=== PATIENT | male | born 1955 | race Caucasian/White ===

== ENCOUNTER 2018-07-13 08:15 | Outpatient (RCR) ==
--- NOTE | 2018-07-01 16:27 | RS.OPPTEV2 ---
Date of Note: 07/01/18 Visit #: 1 Number of visits approved by Insurance: NA Date of Evaluation: 07/01/18 Payer Source: MEDICARE Surgery Performed?: Yes (Right knee Arthroscopic surgery) Date of Procedure: 06/26/18 Treatment Diagnosis: Right knee pain, Right knee stiffness History of Condition/Mechanism of Injury:: Patient reports progressive right knee pain. He has received injections in the knee, which were of no benefit. Continued knee pain and limited functional ability led him to have surgery. 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 Prior to surgery he was independent with all ADL' s, walking, driving and farm activities with knee pain. Functional Limitations: Sleep, Sitting, Standing, Squatting, Ambulation, Community Access/Integration Current Subjective/complaints:: Mr. Hanley reports he used a crutch for the first few days after surgery. Now he just uses a crutch if going out to feed the chickens or anytime he is on uneven ground. States his procedure was to clean out the knee, including cleaning up a meniscus. States he was told that the surgeon did more work on the medial side of the knee joint. States he has iced the knee some. States most of his discomfort is with bending the knee. States he needs to be able to bend his knee up to get into a tractor or a side- by-side. 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 Pain Assessment - Pain Description Pain Location: right knee joint Pain Description: Dull, Aching Current Pain Intensity: 4/10 Worst Pain Intensity: 10/10 Functional Outcome Measure LE Functional Scale: 28 (28/80=65% impairment) - G Codes & Severity Modifier G Codes & Modifier: NA Source of G Code score: NA Observation - Observation Inspection: Right knee presents with two scope entry sites, one on each side of the patella tendon. Steri strips in place over incisions. No bruising noted. Right knee presents min-moderate swelling throughout the knee joint. Gait - Gait Pattern Gait Comments: Mr. Hanley ambulates without an assistive device, with decreased stance on the right LE. He demonstrates good heel strike. Demonstrates decreased right knee flexion during swing phase. - Left Knee ROM Left Knee Extension: -2 from full extension Left Knee Flexion: 118 (degrees AROM) - Right Knee ROM Right Knee Extension: -12 degrees from full extension Right Knee Flexion: 90 (degrees AROM) Knee ROM Limitations: Soft Tissue Tightness, Pain Comments: After ROM/exercises to the right knee, AROM -10 extension to 95 degrees flexion. PROM -8 to 95 degrees. - Left Knee Strength Left Knee Extension: 5 Normal Left Knee Flexion: 5 Normal Comments: Left hip strength 5/5. - Right Knee Strength Right Knee Extension: 4 Good Right Knee Flexion: 4+ Good + Comments: Right hip strength 4+ to 5/5. Palpation Comments:: Reports slight tenderness around the anterior and medial aspect of the right knee joint. Sensation - Sensation Right Lower Extremity: Intact/Normal Left Lower Extremity: Intact/Normal Interventions - Exercise/Activities/Manual Therapy Exercises/Activities: Patient received assistance with ROM to the right knee flexion/extension. Performed SAQ's, SLR's, ankle pumps, Quad sets. Demonstrated passive knee extension with a towel roll under his ankle. Emphasized he needs to do this with his toes pointed up. Also encourged him to ice the knee a few times a day. We discussed the mechanics of the knee and to avoid turning on a planted foot. Total minutes of Exercise: 19 mins Manual Therapy: NA HOME EXERCISE PROGRAM: heel slides, standing HS curls, SAQ's, Quad sets, ankle pumps - Charges Timed Code Treatment Minutes: 19 mins Total Treatment Time: 52 mins Procedures billed for this date of service:: MAMADOU Daugherty, EX EVALUATION COMPLEXITY LEVEL EVALUATION COMPLEXITY LEVEL: HISTORY: Medium (Previous right knee scope, Diabetes, HTN), EXAM OF BODY SYSTEMS: Medium (ROM, MS, gait, sensation), CLINICAL PRESENTATION: Low, CLINICAL DECISION MAKING: Low Assessment Assessment: Mr. Hanley presents to therapy 5 days s/p right knee arthroscopy. He demonstrates limited right knee passive and active ROM due to swelling from recent procedure. Reports limited functional ability with ADL's, gait, and usual farming activities. Gait is impaired at this time due to limited knee ROM. He demonstrates good potential to regain functional AROM of the right knee and return to his prior level of function. Patient Education: Education of diagnosis, Body/Joint mechanics, Home Exercise Program, Activity Modification, Education of Plan of Care Rehab Potential: Good Short Term Goals Goal #1: Pt independent and compliant with HEP. Goal to be met by: 07/08/18 Goal #2: Right knee extension to -5 degrees. Goal to be met by: 07/08/18 Goal #3: Right knee active flexion to 105 degrees. Goal to be met by: 07/08/18 Skilled Nursing Goals Goal #1: Pt knows HEP and to continue ex's to maintain functional level at D/C. Goal to be met by: 07/25/18 Goal #2: Right knee AROM 0 to 120 degrees to perform all functional activities. Goal to be met by: 07/25/18 Goal #3: Pt will amb. w/o assistive device community distances with min. gait deviat Goal to be met by: 07/25/18 Goal #4: Score on LE functional scale improved to 50/80. Goal to be met by: 07/25/18 Plan - Treatment to be Provided Procedures: Therapeutic Exercises, Therapeutic Activity, Patient Education Modalities: Cryotherapy - Treatment Plan Frequency: 1-3 X week Duration: 2 weeks Dates of Cloth Bin Packer Goals: 07/25/18 Expiration date of current Insurance Approval:: NA - Treatment Code (1) Knee pain Code(s): M25.569 - PAIN IN UNSPECIFIED KNEE Qualifiers: Chronicity: acute Laterality: right Qualified Code(s): M25.561 - Pain in right knee (2) Knee stiffness Qualifiers: Laterality: right Qualified Code(s): M25.661 - Stiffness of right knee, not elsewhere classified (3) S/P right knee arthroscopy Code(s): Z98.890 - OTHER SPECIFIED POSTPROCEDURAL STATES Comments: Z98.890
--- NOTE | 2018-07-03 15:58 | RS.OPPTDN ---
Subjective Date of Note: 07/03/18 Visit #: 2 Number of visits approved by Insurance: 3 Date of Evaluation: 07/01/18 Payer Source: MEDICARE Treatment Diagnosis: Right knee pain, Right knee stiffness Current Subjective/complaints:: Patient says he has had tightness and soreness to the R calve and posterior knee. 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 Denies any trouble sleeping related to knee pain. States he only uses his cane when he is on uneven terrain (farm). - Heat/Cryotherapy Treatment: Cryotherapy (20 mins to the R knee after therex) Interventions - Exercise/Activities/Manual Therapy Exercises/Activities: Patient received PROM to the R knee including Flex/ext, hamstring stretching and heel cord stretching. Patellar glides. He performs: QS (with ankle over bolster for added stretch), Hip abd in hooklying with green tband, SAQ 1#, DF with green tband, SLR, Hip adduction with ball squeezes, LAQ all 2x10 reps. Ended with further stretching for HS and knee flexion AAROM. Reviewed HEP and discussed proper body mechanics. Encouraged ice and elevation to the knee over the weekend. Total minutes of Exercise: 34 Manual Therapy: NA HOME EXERCISE PROGRAM: heel slides, standing HS curls, SAQ's, Quad sets, ankle pumps - Charges Timed Code Treatment Minutes: 34 Total Treatment Time: 49 Procedures billed for this date of service:: cp, ex2 Assessment: Patient amb with decreased stance on the R LE and decreased stride length. He admits only mild intermittent pain, but not taking pain medication currently. He has driven himself to therapy session today without difficulty. His sleep is not disturbed due to the R knee pain/scope. He carmen therex with slight fascial grimacing during knee extension. He uses crutch when he is walking around on uneven terrain such as his farm. He should benefit from further sessions to decrease pain and swelling and work on ROM and strength return for the R knee. Patient Education: Education of diagnosis, Body/Joint mechanics, Home Exercise Program, Home Safety, Education of Plan of Care Short Term Goals Goal #1: Pt independent and compliant with HEP. Goal to be met by: 07/08/18 Progress towards Goal:: Progressing Comments:: initiated Goal #2: Right knee extension to -5 degrees. Goal to be met by: 07/08/18 Goal #3: Right knee active flexion to 105 degrees. Goal to be met by: 07/08/18 Molecular Biology Scientist Goals Goal #1: Pt knows HEP and to continue ex's to maintain functional level at D/C. Goal to be met by: 07/25/18 Goal #2: Right knee AROM 0 to 120 degrees to perform all functional activities. Goal to be met by: 07/25/18 Goal #3: Pt will amb. w/o assistive device community distances with min. gait deviat Goal to be met by: 07/25/18 Goal #4: Score on LE functional scale improved to 50/80. Goal to be met by: 07/25/18 Plan Dates of Molecular Biology Scientist Goals: 07/25/18 Expiration date of current Insurance Approval:: 07/25/18 PLAN: Continue x 1 more session then return to MD on 07/08/18. Patient would benefit from receiving continuation order at that point.
--- NOTE | 2018-07-06 11:55 | RS.OPPTDN ---
Subjective Date of Note: 07/06/18 Visit #: 3 Number of visits approved by Insurance: 3 Date of Evaluation: 07/01/18 Payer Source: MEDICARE Treatment Diagnosis: Right knee pain, Right knee stiffness Current Subjective/complaints:: Patient says he has not taken any pain medication in 2 days. Reports the back of his R knee is tight and sore. States he is not icing his knee, but says he doesn't really have any swelling. 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 - Heat/Cryotherapy Treatment: Cryotherapy (15 mins after therex in supine) Interventions - Exercise/Activities/Manual Therapy Exercises/Activities: Patient continued with PROM and stretching to the R knee including Flex/ext, hamstring stretching and heel cord stretching. Patellar glides. Stretching for extension with ankle over bolster. He performs: QS ( with and without ankle over bolster for added stretch), Hip abd in hooklying with green tband, SAQ 1 1/2 #, DF with green tband, SLR, Hip adduction with ball squeezes, Further stretching for flex/ext. LAQ all 2x10 reps. Began stationary bike for ROM x 4 mins forward and reverse full revolutions. Measurements taken. Ended with cryotherapy. Reviewed HEP and discussed proper body mechanics. Encouraged ice and elevation to the knee over the weekend. Total minutes of Exercise: 34 Manual Therapy: NA HOME EXERCISE PROGRAM: heel slides, standing HS curls, SAQ's, Quad sets, ankle pumps - Charges Timed Code Treatment Minutes: 34 Total Treatment Time: 50 Procedures billed for this date of service:: cp, ex2 Assessment: Patient demo increased ROM -7 to 96 degrees actively, Passive flexion to 100 degrees. Pain not requiring patient to take medication and is able to amb independently around house and in community without AD. 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 Recommended him to use ice to hold stretch. He demo only slight to mild swelling. Tightness remains with performing full forward revolutions to the medial posterior knee. He has returned to most all yardwork/home duties. He is to return to July 08. Patient Education: Education of diagnosis, Body/Joint mechanics, Home Exercise Program, Home Safety, Education of Plan of Care Patient demonstrates compliance with HEP?: Yes Short Term Goals Goal #1: Pt independent and compliant with HEP. Goal to be met by: 07/08/18 Progress towards Goal:: Progressing Goal #2: Right knee extension to -5 degrees. Goal to be met by: 07/08/18 Progress towards Goal:: Progressing Comments:: -7 Goal #3: Right knee active flexion to 105 degrees. Goal to be met by: 07/08/18 Progress towards Goal:: Progressing Comments:: 96 to 100 degrees today Retirement Goals Goal #1: Pt knows HEP and to continue ex's to maintain functional level at D/C. Goal to be met by: 07/25/18 Progress towards goal: Progressing Goal #2: Right knee AROM 0 to 120 degrees to perform all functional activities. Goal to be met by: 07/25/18 Goal #3: Pt will amb. w/o assistive device community distances with min. gait deviat Goal to be met by: 07/25/18 Goal #4: Score on LE functional scale improved to 50/80. Goal to be met by: 07/25/18 Plan Dates of Retirement Goals: 07/25/18 Expiration date of current Insurance Approval:: 07/25/18 PLAN: Patient has completed current order. Recommend further orders once he follows up with ortho Friday.
--- NOTE | 2018-07-10 08:54 | RS.OPPTDN ---
Subjective Date of Note: 07/10/18 Visit #: 4 Number of visits approved by Insurance: na Date of Evaluation: 07/01/18 Payer Source: MEDICARE Treatment Diagnosis: Right knee pain, Right knee stiffness Current Subjective/complaints:: Reports yetserday the knee hurt alot ,but better today. Pain Assessment - Pain Description Pain Location: R knee Pain Description: Tightness, Dull, Aching Current Pain Intensity: 2-3/10 Interventions - Exercise/Activities/Manual Therapy Exercises/Activities: 40 mins. total,beginning on exercise bike for 10 mins. , followed by 3/15 each of resisted ankle pumps with green theraband,quad sets to -5 extension ,SLR's ,heelslides to 105 degrees flexion.Grade II AP glides prior to heelslides. Total minutes of Exercise: 40 Manual Therapy: NA Total minutes of Manual Therapy: 0 HOME EXERCISE PROGRAM: heel slides, standing HS curls, SAQ's, Quad sets, ankle pumps - Charges Timed Code Treatment Minutes: 30 Total Treatment Time: 40 Procedures billed for this date of service:: ex 2 Assessment: Tolerates riding the bike better today,has increased knee flexion with les pain present.He reports no pain at rest after exercises today. Patient Education: Education of diagnosis, Body/Joint mechanics, Home Exercise Program, Home Safety, Activity Modification, Education of Plan of Care Patient demonstrates compliance with HEP?: Yes Short Term Goals Goal #1: Pt independent and compliant with HEP. Goal to be met by: 07/08/18 Progress towards Goal:: Progressing Goal #2: Right knee extension to -5 degrees. Goal to be met by: 07/08/18 Progress towards Goal:: Partially Met (-5 today ,but not yet consistent) Goal #3: Right knee active flexion to 105 degrees. Goal to be met by: 07/08/18 Progress towards Goal:: Met Real Estate Manager Goals Goal #1: Pt knows HEP and to continue ex's to maintain functional level at D/C. Goal to be met by: 07/25/18 Progress towards goal: Progressing Goal #2: Right knee AROM 0 to 120 degrees to perform all functional activities. Goal to be met by: 07/25/18 Goal #3: Pt will amb. w/o assistive device community distances with min. gait deviat Goal to be met by: 07/25/18 Progress towards goal: Progressing Goal #4: Score on LE functional scale improved to 50/80. Goal to be met by: 07/25/18 Plan Dates of Real Estate Manager Goals: 07/25/18 Expiration date of current Insurance Approval:: na PLAN: Cont. skilled PT to increase R knee motion with less or no pain present with ADL's.
--- NOTE | 2018-07-13 09:51 | RS.OPPTDN ---
Subjective Date of Note: 07/13/18 Visit #: 5 Number of visits approved by Insurance: 2-3 x 2 with new continuation order for total of 9 visits Date of Evaluation: 07/01/18 Payer Source: MEDICARE Treatment Diagnosis: Right knee pain, Right knee stiffness Current Subjective/complaints:: Patient says he had elevated pain yesterday, but is much better today. 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 He says he no longer takes pain medication or uses a crutch while on uneven terrain. - Heat/Cryotherapy Treatment: Cryotherapy (15 mins to the R knee in supine after therex) Interventions - Exercise/Activities/Manual Therapy Exercises/Activities: 43mins. Patient begins with stationary bike x 7 mins to increase R knee ROM forward and reverse full revolutions with cues to statically stretch while in flexion. Patient supine for patellar glides, passive hamstring and heel cord stretching, stretching for flexion, contract/ relax methods to improve mobility. SAQ 3#, QS on table and with ankle over bolster for added stretch, DF and hooklying hip abd with green tband, ball squeezes in hooklying for hip add, SLR all 3x10 reps. Sitting EOB: contract/ relax multiple reps to further improve ROM as well as continued stretching. Total minutes of Exercise: 43 Manual Therapy: NA HOME EXERCISE PROGRAM: heel slides, standing HS curls, SAQ's, Quad sets, ankle pumps - Charges Timed Code Treatment Minutes: 36 Total Treatment Time: 58 Procedures billed for this date of service:: cp, ex2 Assessment: Patient improving with tolerance to increasing stretching for flexion, demo increased range observably between beginning treatment today to end of session. 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 Patient Education: Education of diagnosis, Home Exercise Program, Home Safety, Education of Plan of Care Patient demonstrates compliance with HEP?: Yes Short Term Goals Goal #1: Pt independent and compliant with HEP. Goal to be met by: 07/08/18 Progress towards Goal:: Progressing Goal #2: Right knee extension to -5 degrees. Goal to be met by: 07/08/18 Progress towards Goal:: Partially Met (-5 today ,but not yet consistent) Goal #3: Right knee active flexion to 105 degrees. Goal to be met by: 07/08/18 Progress towards Goal:: Met [facility] Goals Goal #1: Pt knows HEP and to continue ex's to maintain functional level at D/C. Goal to be met by: 07/25/18 Progress towards goal: Progressing Goal #2: Right knee AROM 0 to 120 degrees to perform all functional activities. Goal to be met by: 07/25/18 Goal #3: Pt will amb. w/o assistive device community distances with min. gait deviat Goal to be met by: 07/25/18 Progress towards goal: Progressing Goal #4: Score on LE functional scale improved to 50/80. Goal to be met by: 07/25/18 Plan Dates of Oil Inspector Goals: 07/25/18 Expiration date of current Insurance Approval:: 07/25/18 PLAN: Patient had presented continuation order last session for 2-3 x 2 more weeks for total of 9 sessions. He should further improve with progressive stretching and strengthening to the R knee.
== END 2018-07-14 23:59 ==
PROVIDERS: ATTEND Orthopaedic Surgery
DX: M25.561 Pain in right knee (principal); M25.661 Stiffness of right knee, not elsewhere classified; Z98.890 Other specified postprocedural states

== ENCOUNTER 2018-07-22 08:15 | Outpatient (RCR) ==
--- NOTE | 2018-07-15 09:40 | RS.OPPTDN ---
Subjective Date of Note: 07/15/18 Visit #: 6 Number of visits approved by Insurance: Reassess at 10 Date of Evaluation: 07/01/18 Payer Source: MEDICARE Treatment Diagnosis: Right knee pain, Right knee stiffness Current Subjective/complaints:: Patient c/o stiffness today. Says he doesn't really have any pain. 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 Interventions - Exercise/Activities/Manual Therapy Exercises/Activities: 43mins. Patient supine for patellar glides, passive hamstring and heel cord stretching, stretching for flexion, contract/relax methods to improve mobility. SAQ 3#, QS on table and with ankle over bolster for added stretch, DF and hooklying hip abd with green tband, ball squeezes in hooklying for hip add, SLR all 3x10 reps. Hip abd with knee extended, more QS 3x10. Sitting EOB: contract/relax multiple reps to further improve ROM as well as continued stretching.Patient ends with stationary bike x 7 mins to increase R knee ROM forward and reverse full revolutions with cues to statically stretch while in flexion. Manual Therapy: NA HOME EXERCISE PROGRAM: heel slides, standing HS curls, SAQ's, Quad sets, ankle pumps - Charges Timed Code Treatment Minutes: 43 Total Treatment Time: 50 Procedures billed for this date of service:: ex3 Assessment: Patient presents with increased stiffness today admitting no pain, but demo slight unsteadiness in gait at one point nearly scissoring. He appears to carmen increased knee extension with aggressive stretching and contract/ relax methods. Will measure next session. Patient Education: Home Exercise Program, Home Safety Patient demonstrates compliance with HEP?: Yes Short Term Goals Goal #1: Pt independent and compliant with HEP. Goal to be met by: 07/08/18 Progress towards Goal:: Progressing Goal #2: Right knee extension to -5 degrees. Goal to be met by: 07/08/18 Progress towards Goal:: Partially Met (-5 today ,but not yet consistent) Goal #3: Right knee active flexion to 105 degrees. Goal to be met by: 07/08/18 Progress towards Goal:: Met Metalworker Goals Goal #1: Pt knows HEP and to continue ex's to maintain functional level at D/C. Goal to be met by: 07/25/18 Progress towards goal: Progressing Goal #2: Right knee AROM 0 to 120 degrees to perform all functional activities. Goal to be met by: 07/25/18 Goal #3: Pt will amb. w/o assistive device community distances with min. gait deviat Goal to be met by: 07/25/18 Progress towards goal: Progressing Goal #4: Score on LE functional scale improved to 50/80. Goal to be met by: 07/25/18 Plan Dates of Long-Term Goals: 07/25/18 Expiration date of current Insurance Approval:: 07/25/18 PLAN: Patient to continue TIW for R knee ROM and strength.
--- NOTE | 2018-07-17 16:39 | RS.OPPTDN ---
Subjective Date of Note: 07/17/18 Visit #: 7 Number of visits approved by Insurance: Reassess at 10th Date of Evaluation: 07/01/18 Payer Source: MEDICARE Treatment Diagnosis: Right knee pain, Right knee stiffness Current Subjective/complaints:: Patient says he's still a little stiff from the damp weather, but reports he is able to do most tasks at home. Says he did not have any increase in pain or difficulty with replacing 100+ pound pump for his tractor 2 days ago. Interventions - Exercise/Activities/Manual Therapy Exercises/Activities: 43mins. Begins with stationary bike forward and reverse x 7 mins intermittently statically stretching for flexion full revolutions. Patient supine for patellar glides, passive hamstring and heel cord stretching, stretching for flexion, contract/relax methods to improve mobility. SAQ 3#, QS on table and with ankle over bolster for added stretch, DF and hooklying hip abd with green tband, ball squeezes in hooklying for hip add, SLR all 3x10 reps. Hip abd with knee extended, more QS 3x10. Stretching for knee extension with ankle over bolster then pt actively performing more QS. Measurements taken. Sitting EOB: contract/relax multiple reps to further improve ROM as well as continued stretching. Standing 3# for ham curls, hip abd, and hip flexion all x 12 reps. Total minutes of Exercise: 45 Manual Therapy: NA HOME EXERCISE PROGRAM: heel slides, standing HS curls, SAQ's, Quad sets, ankle pumps - Charges Timed Code Treatment Minutes: 45 Total Treatment Time: 45 Procedures billed for this date of service:: ex3 Assessment: Patient demo increase in mobility to the R knee this week measuring -3 with QS, (-7 at rest), 107 degrees flexion with heel slide actively. Patient maintains little to no pain level. He amb with slightly better gait today with improved clearing bilaterally. 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 Patient Education: Home Exercise Program, Home Safety Patient demonstrates compliance with HEP?: Yes Short Term Goals Goal #1: Pt independent and compliant with HEP. Goal to be met by: 07/08/18 Progress towards Goal:: Progressing Goal #2: Right knee extension to -5 degrees. Goal to be met by: 07/08/18 Progress towards Goal:: Partially Met (-5 today ,but not yet consistent) Goal #3: Right knee active flexion to 105 degrees. Goal to be met by: 07/08/18 Progress towards Goal:: Met Audit Intern Goals Goal #1: Pt knows HEP and to continue ex's to maintain functional level at D/C. Goal to be met by: 07/25/18 Progress towards goal: Progressing Goal #2: Right knee AROM 0 to 120 degrees to perform all functional activities. Goal to be met by: 07/25/18 Goal #3: Pt will amb. w/o assistive device community distances with min. gait deviat Goal to be met by: 07/25/18 Progress towards goal: Progressing Goal #4: Score on LE functional scale improved to 50/80. Goal to be met by: 07/25/18 Plan Dates of Jail Goals: 07/25/18 Expiration date of current Insurance Approval:: 07/25/18 PLAN: Patient to continue next week for progressive ROM to the R knee
--- NOTE | 2018-07-20 12:49 | RS.OPPTDN ---
Subjective Date of Note: 07/20/18 Visit #: 8 Number of visits approved by Insurance: 9 Date of Evaluation: 07/01/18 Payer Source: MEDICARE Treatment Diagnosis: Right knee pain, Right knee stiffness Current Subjective/complaints:: Patient says he had an increase in pain over the weekend related to the damp weather. He reports soreness and tight at the R medial and posterior knee. Reports he was walking around [facility] and had to go home and put ice on his knee, but denies taking pain medication. Interventions - Exercise/Activities/Manual Therapy Exercises/Activities: 43mins. Begins with stationary bike forward and reverse x 8 mins intermittently statically stretching for flexion full revolutions. Patient supine for patellar glides, passive hamstring and heel cord stretching, stretching for flexion, contract/relax methods to improve mobility. SAQ increased to 4#, QS on table and with ankle over bolster for added stretch, DF and hooklying hip abd with green tband, ball squeezes in hooklying for hip add, SLR all 3x10 reps. Hip abd with knee extended, more QS 3x10. Stretching for knee extension with ankle over bolster then pt actively performing more QS. Sitting EOB: contract/relax multiple reps to further improve ROM as well as continued stretching. Stretching again for extension, LAQ 4#, Standing 3# for ham curls, hip abd, and hip flexion all x 12 reps. Manual Therapy: NA HOME EXERCISE PROGRAM: heel slides, standing HS curls, SAQ's, Quad sets, ankle pumps - Charges Timed Code Treatment Minutes: 43 Total Treatment Time: 51 Procedures billed for this date of service:: ex3 Assessment: Patient progressing well with all therex demo improved knee flexion. He has had intermittent increase in pain related to consistent rain. He finds relief with ice at home and is not taking pain medication. 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 Remains tight at the R hamstrings, but does improve knee extension with contract/relax methods. Patient Education: Home Exercise Program, Education of Plan of Care Patient demonstrates compliance with HEP?: Yes Short Term Goals Goal #1: Pt independent and compliant with HEP. Goal to be met by: 07/08/18 Progress towards Goal:: Met Goal #2: Right knee extension to -5 degrees. Goal to be met by: 07/08/18 Progress towards Goal:: Partially Met (-5 today ,but not yet consistent) Goal #3: Right knee active flexion to 105 degrees. Goal to be met by: 07/08/18 Progress towards Goal:: Met Safety Lamp Keeper Goals Goal #1: Pt knows HEP and to continue ex's to maintain functional level at D/C. Goal to be met by: 07/25/18 Progress towards goal: Progressing Goal #2: Right knee AROM 0 to 120 degrees to perform all functional activities. Goal to be met by: 07/25/18 Progress towards goal: Progressing Goal #3: Pt will amb. w/o assistive device community distances with min. gait deviat Goal to be met by: 07/25/18 Progress towards goal: Progressing Goal #4: Score on LE functional scale improved to 50/80. Goal to be met by: 07/25/18 Comments: assess next session Plan Dates of Care Home Goals: 07/25/18 Expiration date of current Insurance Approval:: 07/25/18 PLAN: Patient to continue 1 more session per order. Reassess LE Functional Index.
--- NOTE | 2018-07-22 10:53 | RS.OPPTDN ---
Subjective Date of Note: 07/22/18 Visit #: 9 Number of visits approved by Insurance: 9 Date of Evaluation: 07/01/18 Payer Source: MEDICARE Treatment Diagnosis: Right knee pain, Right knee stiffness Current Subjective/complaints:: Patient says he has been going up/down his stairs at home with no problems. He admits leading with the involved LE and 1 handrail. He says he is able to do "everything" at home. Interventions - Exercise/Activities/Manual Therapy Exercises/Activities: 43mins. Begins with stationary bike forward and reverse x 8 mins intermittently statically stretching for flexion full revolutions. Patient supine for patellar glides, passive hamstring and heel cord stretching, stretching for flexion, contract/relax methods to improve mobility. SAQ 4#, QS on table and with ankle over bolster for added stretch, DF and hooklying hip abd with blue tband, ball squeezes in hooklying for hip add, SLR 1 1/2# all 3x10 reps. Hip abd with knee extended, more QS 3x10. Stretching for knee extension with ankle over bolster then pt actively performing more QS. Sitting EOB: contract/relax multiple reps to further improve ROM as well as continued stretching. Stretching again for extension, LAQ 4#, Standing 4# for ham curls, hip abd, and hip flexion all x 12 reps. Deep step ups on Balance Elma with instruction of proper step sequence using 1 rail x 8. No c/o's and pt able to perform correctly. Patient completes LE Functional Index. Manual Therapy: NA HOME EXERCISE PROGRAM: heel slides, standing HS curls, SAQ's, Quad sets, ankle pumps - Objective Findings Observations,measurements,etc.: 54/80 or 33% impairment (EVAL 28/80 or 65% impairment) - Charges Timed Code Treatment Minutes: 43 Total Treatment Time: 43 Procedures billed for this date of service:: ex3 Assessment: Patient has completed original and continuation order. Patient expresses satisfaction with progress at this point and has resumed all other activities at home. He demo improvement per LE Functional Index showing limitation with expected column for running only. Improved ROM with extension now equaling the L, flexion is 109 degrees actively. 113 degrees passively. Patient Education: Education of diagnosis, Body/Joint mechanics, Home Exercise Program, Home Safety, Education of Plan of Care Patient demonstrates compliance with HEP?: Yes Short Term Goals Goal #1: Pt independent and compliant with HEP. Goal to be met by: 07/08/18 Progress towards Goal:: Met Goal #2: Right knee extension to -5 degrees. Goal to be met by: 07/08/18 Progress towards Goal:: Met (Patient demo -4/-5 degrees average. However, the L knee measures comparable -3/-4 degrees) Goal #3: Right knee active flexion to 105 degrees. Goal to be met by: 07/08/18 Progress towards Goal:: Met Half-Way Goals Goal #1: Pt knows HEP and to continue ex's to maintain functional level at D/C. Goal to be met by: 07/25/18 Progress towards goal: Met Goal #2: Right knee AROM 0 to 120 degrees to perform all functional activities. Goal to be met by: 07/25/18 Progress towards goal: Progressing Comments: -4 to 109 degrees Goal #3: Pt will amb. w/o assistive device community distances with min. gait deviat Goal to be met by: 07/25/18 Progress towards goal: Met Comments: Patient amb independently with only slight deviation Goal #4: Score on LE functional scale improved to 50/80. Goal to be met by: 07/25/18 Progress towards goal: Met (54/80) Plan Dates of Half-Way Goals: 07/25/18 Expiration date of current Insurance Approval:: 07/25/18 PLAN: Discharge as patient has completed orders and he expresses satisfaction with his progress at this point. He has met most all goals.
--- NOTE | 2018-08-13 14:40 | RS.OPPTDC ---
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 Reports no pain other than occasional stiffness/aching with prolonged ambulatiion and weather changes. States his flexibility is "pretty much what my other leg is". States he is managing stairs at home without difficulty. Functional Outcome Measure LE Functional Scale: 53 (53/80=34% impairment) - G Codes & Severity Modifier G Codes & Modifier: NA Source of G Code score: NA Interventions - Exercise/Activities/Manual Therapy Exercises/Activities: NA Manual Therapy: NA HOME EXERCISE PROGRAM: heel slides, standing HS curls, SAQ's, Quad sets, ankle pumps - Objective Findings Observations,measurements,etc.: Right knee AROM -3/-4 to 109 degree flexion. Passive flexion to 113 degrees. Right knee extension is symmetrical to the left knee. right knee and hip strength 5/5. Ambulates without assistive device. - Charges Timed Code Treatment Minutes: NA Total Treatment Time: NA Procedures billed for this date of service:: NA Assessment Assessment: Mr. Hanley has made good progress with therapy. LE FOM improved from 65% impairment at initial evaluation to 34% impairment at this last session. 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 He demonstrates no further need for skilled therapy and he is independent in his HEP. Short Term Goals Goal #1: Pt independent and compliant with HEP. Goal to be met by: 07/08/18 Progress towards Goal:: Met Goal #2: Right knee extension to -5 degrees. Goal to be met by: 07/08/18 Progress towards Goal:: Met (Patient demo -4/-5 degrees average. However, the L knee measures comparable -3/-4 degrees) Goal #3: Right knee active flexion to 105 degrees. Goal to be met by: 07/08/18 Progress towards Goal:: Met Psychology Fellow Goals Goal #1: Pt knows HEP and to continue ex's to maintain functional level at D/C. Goal to be met by: 07/25/18 Progress towards goal: Met Goal #2: Right knee AROM 0 to 120 degrees to perform all functional activities. Goal to be met by: 07/25/18 Progress towards goal: Partially Met Comments: Degrees not met, but patient states he can perform all functional activity Goal #3: Pt will amb. w/o assistive device community distances with min. gait deviat Goal to be met by: 07/25/18 Progress towards goal: Met Goal #4: Score on LE functional scale improved to 50/80. Goal to be met by: 07/25/18 Progress towards goal: Met (54/80) Plan Reason for Discharge:: No Further Skilled Therapy Indicated
== END 2018-08-14 23:59 ==
PROVIDERS: ATTEND Orthopaedic Surgery
DX: M25.561 Pain in right knee (principal)

== ENCOUNTER 2018-11-13 08:00 | Outpatient (RCR) | payer OTHER ==
--- NOTE | 2018-10-23 11:46 | RS.OPPTEV2 ---
Date of Note: 10/23/18 Visit #: 1 Number of visits approved by Insurance: NA Date of Evaluation: 10/23/18 Payer Source: MEDICARE Date of Onset/Injury/Change in Status: 10/20/18 Surgery Performed?: Yes (Right Total knee replacement) Treatment Diagnosis: Right knee pain, Right knee stiffness, s/p right TKA History of Condition/Mechanism of Injury:: Reports progressive right knee pain and loss of function led him to have joint replacement surgery. He had arthroscopy surgery of this knee back in June, but continued to have pain. 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 Prior to surgery he was independent with all ADL's, walking, driving and farm activities with knee pain. Functional Limitations: Sleep, Self Care, ADL's, Reaching, Pushing, Pulling, Lifting, Carrying, Sitting, Standing, Bending, Squatting, Ambulation, Community Access/Integration Current Subjective/complaints:: Patient reports right knee pain and stiffness since surgery three days ago. States he is using the rolling walker with all ambulation. He denies any tingling or numbness, other than at the incision area. When asked if he was given any exercises for home while at the hospital, he states they basically just told him to pump his foot up and down. He has been icing the knee. States he is able to get his shower with minimal difficulty. States he has five stairs to get into his home, with a rail on one side. States he uses a crutch on the other side. He has no other steps inside his home. Treatment Side (optional): Right Medical History Medical History: Hypertension, Diabetes, Arthritis Surgical History Comments:: Right knee scope 2005, Left knee scope 2003 Smoking Status: Never smoker Hx Home Medications: Metformin, Fenofibric, Rosuvastatin, Onglyza, olmesartan, pain medication Patient's Goals: His goal is to return to his prior level of function. Pain Assessment - Pain Description Pain Location: right knee joint Pain Description: Tightness Current Pain Intensity: 2-3/10 Worst Pain Intensity: 10/10 Functional Outcome Measure LE Functional Scale: 18 (18/80=77.5% impairment) - G Codes & Severity Modifier G Codes & Modifier: NA Source of G Code score: Na Observation - Observation Inspection: Mr. Hanley presents to therapy with a 7.5 inch incision at the right knee. It is clean and exhibits no drainage or redness. Incision is covered with transpore tape. Demonstrates swelling in the left knee joint and lower leg. Girth Measurement Lower: Left knee: 43 cm at most inferior aspect of incision and 54 cm at most superior aspect of incision. Gait - Gait Pattern Gait Comments: Pt ambulates with RW with decreassed stance on the right LE. Also exhibits decreased right knee and hip flexion during swing phase. He demonstrates good safety with sit<>stand transfers. - Left Knee ROM Left Knee Extension: full extension Left Knee Flexion: 125 (degrees AROM) Knee ROM Limitations: Soft Tissue Tightness - Right Knee ROM Right Knee Extension: -7 degrees from full extension Right Knee Flexion: 74 (degrees AAROM) Knee ROM Limitations: Soft Tissue Tightness, Pain Comments: Discharge note following right knee scope states patient had functional AROM of the right knee at the conclusion of therapy. - Left Knee Strength Left Knee Extension: 5 Normal Left Knee Flexion: 5 Normal - Right Knee Strength Right Knee Extension: 4- Good- Right Knee Flexion: 4 Good Palpation Comments:: Patient reports no significant tenderness to right calf. Demonstrates no more tenderness than expected at the right knee joint. Sensation - Sensation Right Lower Extremity: Intact/Normal Left Lower Extremity: Intact/Normal Balance - Standing Balance Static Standing Balance: Fair (-) Dynamic Standing Balance: Poor - Treatment Modality: Electrical Stim Unattended Parameters/Method Applied: IFC X 15 mins to right knee with cold pack. Peak volts up to 16 Patient Position: Supine (with leg elevated) Interventions - Exercise/Activities/Manual Therapy Exercises/Activities: Assisted patient with knee flexion/extension. Patient performed QS and SAQ's. Instructed patient in HEP of ankle pumps, QS, SAQ's, heel slides, standing HS curls, and SLR's. Advised him to continue icing the knee often at home to manage his pain and swelling. Total minutes of Exercise: X 13 mins Manual Therapy: NA HOME EXERCISE PROGRAM: heel slides, standing HS curls, SAQ's, Quad sets, ankle pumps - Charges Timed Code Treatment Minutes: 13 mins Total Treatment Time: 55 mins Procedures billed for this date of service:: EVAL Low, Estim, CP EVALUATION COMPLEXITY LEVEL EVALUATION COMPLEXITY LEVEL: HISTORY: Low (Right scope 06/2018, left knee scope, Diabetic, HTN), EXAM OF BODY SYSTEMS: Low, CLINICAL PRESENTATION: Low, CLINICAL DECISION MAKING: Low Assessment Assessment: Patient presents three days s/p right TKA. He exhibits marked decrease in ROM into flexion. His ability with selfcare, ADL's, and ambulation is all limited at this time due to knee pain, swelling, and limited AROM. He presents with excellent potential to regain functional AROM of the right knee and return to his prior level of function. Patient Education: Education of diagnosis, Body/Joint mechanics, Home Exercise Program, Home Safety, Activity Modification, Education of Plan of Care Rehab Potential: Good Short Term Goals Goal #1: Pt independent and compliant with HEP. Goal to be met by: 11/06/18 Goal #2: Right knee AROM full extension to 110 degrees. Goal to be met by: 11/06/18 Goal #3: Pt to amb. with st. cane with good safety and minimal gt deviation. Goal to be met by: 11/13/18 Shelter Goals Goal #1: Pt knows HEP and to continue ex's to maintain functional level at D/C. Goal to be met by: 12/12/18 Goal #2: Right knee AROM WFL's to perform all functional activities. Goal to be met by: 12/12/18 Goal #3: Pt will amb. w/o assistive device community distances with min. gait deviat Goal to be met by: 12/12/18 Goal #4: Score on LE functional scale improved to 54/80. Goal to be met by: 12/12/18 Plan - Treatment to be Provided Procedures: Therapeutic Exercises, Therapeutic Activity, Gait Training, Neuromuscular Rehab, Manual Therapy, Patient Education Modalities: Electrical Stimulation, Cryotherapy - Treatment Plan Frequency: 2-3 X week Duration: 4 weeks Dates of Shelter Goals: 12/12/18 Expiration date of current Insurance Approval:: NA - Treatment Code (1) Knee pain Code(s): M25.569 - PAIN IN UNSPECIFIED KNEE Qualifiers: Chronicity: acute Laterality: right Qualified Code(s): M25.561 - Pain in right knee (2) Knee stiffness Qualifiers: Laterality: right Qualified Code(s): M25.661 - Stiffness of right knee, not elsewhere classified (3) Gait abnormality Code(s): R26.9 - UNSPECIFIED ABNORMALITIES OF GAIT AND MOBILITY Comments: R26.9 (4) Aftercare following joint replacement surgery Code(s): Z47.1 - AFTERCARE FOLLOWING JOINT REPLACEMENT SURGERY Qualifiers: Joint replacement surgery site: knee Laterality: right Qualified Code(s) : Z47.1 - Aftercare following joint replacement surgery; Z96.651 - Presence of right artificial knee joint
--- NOTE | 2018-10-26 12:00 | RS.OPPTDN ---
Subjective Date of Note: 10/26/18 Visit #: 2 Number of visits approved by Insurance: na Date of Evaluation: 10/23/18 Payer Source: MEDICARE Treatment Diagnosis: Right knee pain, Right knee stiffness, s/p right TKA Current Subjective/complaints:: Patient reports stiffness in the right knee, but states his pain level is not bad today. States he is using ice frequently at home. Pain Assessment - Pain Description Pain Location: right knee Pain Description: Tightness, Aching Current Pain Intensity: 2-3/10 - Treatment Modality: Electrical Stim Unattended Parameters/Method Applied: [id number] HVGC to 425p.v. with 4 large pads to the right knee with CP following EX. Patient Position: Supine - Heat/Cryotherapy Treatment: Cryotherapy (with Estim ) Interventions - Exercise/Activities/Manual Therapy Exercises/Activities: Assisted patient with knee flexion/extension. Patient performed QS and SAQ and AP. Isometric hip add and isometric ankle inversion, both with ball. Assisted heel slides and SLR. Yellow theraband for resisted ankle df and ham curls. In sitting, passive flexion, isometric flex/ext, and yellow theraband resisted ham curls. Standing ham curl, toe-ups, marching, and mini-squats. Total minutes of Exercise: 34mins Manual Therapy: NA HOME EXERCISE PROGRAM: heel slides, standing HS curls, SAQ's, Quad sets, ankle pumps, heel slides in sitting - Objective Findings Observations,measurements,etc.: Passive right knee flexion to 93-95 degrees today. - Charges Timed Code Treatment Minutes: 34mins Total Treatment Time: 54mins Procedures billed for this date of service:: EX2, CP, Estim unattended Assessment: Patient progressing well with ROM and appears to be working on HEP as instructed. Patient Education: Body/Joint mechanics, Home Exercise Program, Home Safety Patient demonstrates compliance with HEP?: Yes Short Term Goals Goal #1: Pt independent and compliant with HEP. Goal to be met by: 11/06/18 Progress towards Goal:: Progressing Goal #2: Right knee AROM full extension to 110 degrees. Goal to be met by: 11/06/18 Progress towards Goal:: Progressing Goal #3: Pt to amb. with st. cane with good safety and minimal gt deviation. Goal to be met by: 11/13/18 Bag Making Machine Tender Goals Goal #1: Pt knows HEP and to continue ex's to maintain functional level at D/C. Goal to be met by: 12/12/18 Goal #2: Right knee AROM WFL's to perform all functional activities. Goal to be met by: 12/12/18 Goal #3: Pt will amb. w/o assistive device community distances with min. gait deviat Goal to be met by: 12/12/18 Goal #4: Score on LE functional scale improved to 54/80. Goal to be met by: 12/12/18 Plan Dates of Bag Making Machine Tender Goals: 12/12/18 Expiration date of current Insurance Approval:: 12/12/18 PLAN: Progress with ROM and strengthening of the right LE to increase functional ambulation and mobility.
--- NOTE | 2018-10-28 10:40 | RS.OPPTDN ---
Subjective Date of Note: 10/28/18 Visit #: 3 Number of visits approved by Insurance: na Date of Evaluation: 10/23/18 Payer Source: MEDICARE Treatment Diagnosis: Right knee pain, Right knee stiffness, s/p right TKA Current Subjective/complaints:: Patient reports increased pain and stiffness last night. States he is doing better each day. Pain Assessment - Pain Description Pain Location: right knee Pain Description: Tightness Current Pain Intensity: mild - Treatment Modality: Electrical Stim Unattended Parameters/Method Applied: [id number] HVGC to 450p.v. with 4 large pads to the right knee joint with CP following EX. Patient Position: Supine - Heat/Cryotherapy Treatment: Cryotherapy (with Estim ) Interventions - Exercise/Activities/Manual Therapy Exercises/Activities: Assisted patient with knee flexion/extension. Patient performed QS and SAQ and AP. Isometric hip add and isometric ankle inversion, both with ball. Assisted heel slides and SLR. Yellow theraband for resisted ankle df, hip abd, and hip add, 2s/10reps each. Red tband for ham curls. In sitting, passive flexion, isometric flex/ext, and yellow theraband resisted ham curls. With 1 1/2# to right ankle LAQ and alt hip flexion, 2s/10reps each. Passive flexion stretching. Discussion of HEP. Total minutes of Exercise: 32mins Manual Therapy: NA HOME EXERCISE PROGRAM: heel slides, standing HS curls, SAQ's, Quad sets, ankle pumps, heel slides in sitting. Sitting, LAQ and alt hip flexion. SLR. - Objective Findings Observations,measurements,etc.: Passive right knee flexion to 95 degrees, in sitting, with tight/painful end-feel. Patient demos slow but steady gait with RW, with good heel strike on right. - Charges Timed Code Treatment Minutes: 32mins Total Treatment Time: 52mins Procedures billed for this date of service:: EX2, CP, Estim unattended Assessment: Patient progressing well with strengthening, ROM, and functional ambulation. Patient Education: Body/Joint mechanics, Home Exercise Program, Activity Modification Patient demonstrates compliance with HEP?: Yes Short Term Goals Goal #1: Pt independent and compliant with HEP. Goal to be met by: 11/06/18 Progress towards Goal:: Progressing Goal #2: Right knee AROM full extension to 110 degrees. Goal to be met by: 11/06/18 Progress towards Goal:: Progressing Goal #3: Pt to amb. with st. cane with good safety and minimal gt deviation. Goal to be met by: 11/13/18 Associate Software Development Engineer Goals Goal #1: Pt knows HEP and to continue ex's to maintain functional level at D/C. Goal to be met by: 12/12/18 Goal #2: Right knee AROM WFL's to perform all functional activities. Goal to be met by: 12/12/18 Progress towards goal: Progressing Goal #3: Pt will amb. w/o assistive device community distances with min. gait deviat Goal to be met by: 12/12/18 Goal #4: Score on LE functional scale improved to 54/80. Goal to be met by: 12/12/18 Plan Dates of Senior Living Goals: 12/12/18 Expiration date of current Insurance Approval:: 12/12/18 PLAN: Progress with ROM and strengthening to increase functional mobility.
--- NOTE | 2018-11-02 10:02 | RS.OPPTDN ---
Subjective Date of Note: 10/30/18 Visit #: 4 Number of visits approved by Insurance: na Date of Evaluation: 10/23/18 Payer Source: MEDICARE Treatment Diagnosis: Right knee pain, Right knee stiffness, s/p right TKA Current Subjective/complaints:: Reports swelling continues but is slowly impoving. States he is walking with less pain and working on HEP. Pain Assessment - Pain Description Pain Location: right knee Pain Description: Tightness, Aching Current Pain Intensity: mod - Treatment Modality: Electrical Stim Unattended Parameters/Method Applied: [id number] HVGC to 455p.v. with 4 large pads to the right knee joint with CP following EX. Right LE elevated to reduce swelling. Patient Position: Supine - Heat/Cryotherapy Treatment: Cryotherapy (with Estim ) Interventions - Exercise/Activities/Manual Therapy Exercises/Activities: Assisted patient with knee flexion/extension. Patient performed QS and SAQ and AP. Isometric hip add and isometric ankle inversion, both with ball. Assisted heel slides and SLR. Red theraband for resisted ankle df, hip abd, and hip add, 2s/10reps each. Red tband for ham curls. In sitting, passive flexion, isometric flex/ext, and yellow theraband resisted ham curls. With 2 to right ankle LAQ and alt hip flexion, 2s/10reps each. Patient assisted onto stationary bike and needs assist to keep right LE on pedal, but is able to perform full forward and backward revolutions with and without assist. Total minutes of Exercise: 31mins Manual Therapy: NA HOME EXERCISE PROGRAM: heel slides, standing HS curls, SAQ's, Quad sets, ankle pumps, heel slides in sitting. Sitting, LAQ and alt hip flexion. SLR. - Objective Findings Observations,measurements,etc.: Right knee flexion to 96 degrees and patient performs full revolutions on stationary bike. - Charges Timed Code Treatment Minutes: 31mins Total Treatment Time: 55mins Procedures billed for this date of service:: EX2, CP, Estim unatteded Assessment: Paitent progressing well with ROM and strengthening exercise. He continues to ambulate with RW, but demos improvement with gait pattern. Patient Education: Home Exercise Program Patient demonstrates compliance with HEP?: Yes Short Term Goals Goal #1: Pt independent and compliant with HEP. Goal to be met by: 11/06/18 Progress towards Goal:: Progressing Goal #2: Right knee AROM full extension to 110 degrees. Goal to be met by: 11/06/18 Progress towards Goal:: Progressing Goal #3: Pt to amb. with st. cane with good safety and minimal gt deviation. Goal to be met by: 11/13/18 Data Processor Goals Goal #1: Pt knows HEP and to continue ex's to maintain functional level at D/C. Goal to be met by: 12/12/18 Goal #2: Right knee AROM WFL's to perform all functional activities. Goal to be met by: 12/12/18 Progress towards goal: Progressing Goal #3: Pt will amb. w/o assistive device community distances with min. gait deviat Goal to be met by: 12/12/18 Goal #4: Score on LE functional scale improved to 54/80. Goal to be met by: 12/12/18 Plan Dates of Alf Goals: 12/12/18 Expiration date of current Insurance Approval:: 12/12/18 PLAN: Progress with exercise to increase strength, ROM, and functional activity level.
--- NOTE | 2018-11-02 13:34 | RS.OPPTDN ---
Subjective Date of Note: 11/02/18 Visit #: 5 Number of visits approved by Insurance: na Date of Evaluation: 10/23/18 Payer Source: MEDICARE Treatment Diagnosis: Right knee pain, Right knee stiffness, s/p right TKA Current Subjective/complaints:: Patient reports doing more walking at home this weekend. States pain and swelling right knee are improving. Pain Assessment - Pain Description Pain Location: right knee Pain Description: Tightness, Aching Current Pain Intensity: mild - Treatment Modality: Electrical Stim Unattended Parameters/Method Applied: Ended session with 20mins HVGC to 500p.v. with 4 large pads to the right knee with CP. Patient Position: Supine - Heat/Cryotherapy Treatment: Cryotherapy (with Estim ) Interventions - Exercise/Activities/Manual Therapy Exercises/Activities: Assisted stretching of right hamstrings and knee flexion/ extension. Patient performed QS and AP. Added 4# to SAQ, 3s/10reps. Isometric hip add and isometric ankle inversion, both with ball. Added 1 1/2# to SLR and 1# to hip abd. Increased to green theraband for resisted ankle df 3s/10reps, and ham curls 2s/10reps. In sitting, passive flexion, isometric flex/ext, and green theraband resisted ham curls. Began LAQ with 3# and right hip flexion, 2s/ 10reps each. Stanidng right ham curl and hip abd, with 4#. Mini-squats. Patient assisted onto stationary bike with continued assist to keep right LE on pedal. He again is able to perform full forward and backward revolutions, x4mins, with and without assist. Total minutes of Exercise: 31mins Manual Therapy: NA HOME EXERCISE PROGRAM: heel slides, standing HS curls, SAQ's, Quad sets, ankle pumps, heel slides in sitting. Sitting, LAQ and alt hip flexion. SLR. - Objective Findings Observations,measurements,etc.: Walks into department today using one crutch on right side. - Charges Timed Code Treatment Minutes: 31mins Total Treatment Time: 55mins Procedures billed for this date of service:: EX2, CP, Estim unattended Assessment: Patient progressing with strengthening exercise and has progressed from RW to use of one crutch only. Patient Education: Home Exercise Program, Activity Modification Patient demonstrates compliance with HEP?: Yes Short Term Goals Goal #1: Pt independent and compliant with HEP. Goal to be met by: 11/06/18 Progress towards Goal:: Progressing Goal #2: Right knee AROM full extension to 110 degrees. Goal to be met by: 11/06/18 Progress towards Goal:: Progressing Goal #3: Pt to amb. with st. cane with good safety and minimal gt deviation. Goal to be met by: 11/13/18 Abrasive Mixer Helper Goals Goal #1: Pt knows HEP and to continue ex's to maintain functional level at D/C. Goal to be met by: 12/12/18 Goal #2: Right knee AROM WFL's to perform all functional activities. Goal to be met by: 12/12/18 Progress towards goal: Progressing Goal #3: Pt will amb. w/o assistive device community distances with min. gait deviat Goal to be met by: 12/12/18 Goal #4: Score on LE functional scale improved to 54/80. Goal to be met by: 12/12/18 Plan Dates of Long-Term Goals: 12/12/18 Expiration date of current Insurance Approval:: 12/12/18 PLAN: Continue exercise to increase strength, ROM, and functional activity level.
--- NOTE | 2018-11-04 09:21 | RS.OPPTDN ---
Subjective Date of Note: 11/04/18 Visit #: 6 Number of visits approved by Insurance: na Date of Evaluation: 10/23/18 Payer Source: MEDICARE Treatment Diagnosis: Right knee pain, Right knee stiffness, s/p right TKA Current Subjective/complaints:: Patient reports he is walking with cane today, but continues to use a crutch [place] States the crutch gives him more support. Pain Assessment - Pain Description Pain Location: right knee Pain Description: Tightness, Aching Current Pain Intensity: mild to mod Interventions - Exercise/Activities/Manual Therapy Exercises/Activities: Assisted stretching of right hamstrings and knee flexion/ extension. Performs QS, ham sets, and AP. 4# to SAQ, 3s/10reps. Isometric hip add and isometric ankle inversion, both with ball. Increased to 2 1/2# to SLR. Increased to blue theraband for resisted ankle df 3s/10reps, and green theraband ham curls 2s/10reps. In sitting, passive flexion, isometric flex/ext, and increased to blue theraband resisted ham curls. Increased to 4# for LAQ and right hip flexion, 2s/10reps each. Standing right ham curl and hip abd, with 4#. Leg press 60#, 2s/20reps. Patient assisted onto stationary bike and performs for 4 1/2mins, no assist today. Total minutes of Exercise: 39mins/43mins Manual Therapy: NA HOME EXERCISE PROGRAM: heel slides, standing HS curls, SAQ's, Quad sets, ankle pumps, heel slides in sitting. Sitting, LAQ and alt hip flexion. SLR. - Objective Findings Observations,measurements,etc.: Active right knee flexion to 98 degrees and passive knee flexion to 103 degrees. - Charges Timed Code Treatment Minutes: 39mins Total Treatment Time: 43mins Procedures billed for this date of service:: EX3 Assessment: Patient progressing with strength, ROM, and has progressed to walking with straight cane. Patient Education: Home Exercise Program Patient demonstrates compliance with HEP?: Yes Short Term Goals Goal #1: Pt independent and compliant with HEP. Goal to be met by: 11/06/18 Progress towards Goal:: Partially Met Goal #2: Right knee AROM full extension to 110 degrees. Goal to be met by: 11/06/18 Progress towards Goal:: Progressing Goal #3: Pt to amb. with st. cane with good safety and minimal gt deviation. Goal to be met by: 11/13/18 Progress towards Goal:: Progressing Wood Dowel Machine Operator Goals Goal #1: Pt knows HEP and to continue ex's to maintain functional level at D/C. Goal to be met by: 12/12/18 Progress towards goal: Progressing Goal #2: Right knee AROM WFL's to perform all functional activities. Goal to be met by: 12/12/18 Progress towards goal: Progressing Goal #3: Pt will amb. w/o assistive device community distances with min. gait deviat Goal to be met by: 12/12/18 Goal #4: Score on LE functional scale improved to 54/80. Goal to be met by: 12/12/18 Plan Dates of Wood Dowel Machine Operator Goals: 12/12/18 Expiration date of current Insurance Approval:: 12/12/18 PLAN: Continue progressing strength and ROM to increase patients safety and functional activity level.
--- NOTE | 2018-11-06 11:32 | RS.OPPTDN ---
Subjective Date of Note: 11/06/18 Visit #: 7 Number of visits approved by Insurance: na Date of Evaluation: 10/23/18 Payer Source: MEDICARE Treatment Diagnosis: Right knee pain, Right knee stiffness, s/p right TKA Current Subjective/complaints:: Patient reports increased tightness and discomfort today. States he feels it is related to rainy weather. Pain Assessment - Pain Description Pain Location: right knee Pain Description: Tightness, Aching Current Pain Intensity: moderate Interventions - Exercise/Activities/Manual Therapy Exercises/Activities: Assisted stretching of right hamstrings and knee flexion/ extension. Performs QS, ham sets. 4# right for SAQ and alt hip flexion, 3s/ 10reps. Isometric hip add and isometric ankle inversion, both with ball. 2 1/2 # to SLR. Blue theraband for resisted ankle df 3s/10reps, and green theraband for ankle inversion, eversion, and ham curls 2s/10reps. In sitting, 4# to right for LAQ and hip flexion. Green tband for ham curl. Passive flexion, isometric flex/ext. Standing right ham curl. Leg press 45# 2s/20reps and 60# 2s/20reps. Patient assisted onto stationary bike and performs for 4mins, no assist today. Total minutes of Exercise: 42mins, 46mins Manual Therapy: NA HOME EXERCISE PROGRAM: heel slides, standing HS curls, SAQ's, Quad sets, ankle pumps, heel slides in sitting. Sitting, LAQ and alt hip flexion. SLR. - Objective Findings Observations,measurements,etc.: Passive right knee flexion to 107 degrees today. - Charges Timed Code Treatment Minutes: 42mins Total Treatment Time: 46mins Procedures billed for this date of service:: EX3 Assessment: Patient continues to demonstrate progress with ROM and is progressing with ambulation with cane. Patient Education: Home Exercise Program Patient demonstrates compliance with HEP?: Yes Short Term Goals Goal #1: Pt independent and compliant with HEP. Goal to be met by: 11/06/18 Progress towards Goal:: Partially Met Goal #2: Right knee AROM full extension to 110 degrees. Goal to be met by: 11/06/18 Progress towards Goal:: Progressing Goal #3: Pt to amb. with st. cane with good safety and minimal gt deviation. Goal to be met by: 11/13/18 Progress towards Goal:: Partially Met Machine Setter Supervisor Goals Goal #1: Pt knows HEP and to continue ex's to maintain functional level at D/C. Goal to be met by: 12/12/18 Progress towards goal: Progressing Goal #2: Right knee AROM WFL's to perform all functional activities. Goal to be met by: 12/12/18 Progress towards goal: Progressing Goal #3: Pt will amb. w/o assistive device community distances with min. gait deviat Goal to be met by: 12/12/18 Goal #4: Score on LE functional scale improved to 54/80. Goal to be met by: 12/12/18 Plan Dates of Machine Setter Supervisor Goals: 12/12/18 Expiration date of current Insurance Approval:: 12/12/18 PLAN: Progress with strength and ROM of right knee to improve ambulation and functional activity level.
--- NOTE | 2018-11-09 10:18 | RS.OPPTDN ---
Subjective Date of Note: 11/09/18 Visit #: 8 Number of visits approved by Insurance: n/a Date of Evaluation: 10/23/18 Payer Source: MEDICARE Treatment Diagnosis: Right knee pain, Right knee stiffness, s/p right TKA Current Subjective/complaints:: pt states he can tell the rainy weather has him a little more sore. *Precautions: n/a Pain Assessment - Pain Description Pain Location: R knee Pain Description: Aching Current Pain Intensity: 1-2/10 Interventions - Exercise/Activities/Manual Therapy Exercises/Activities: pt performed RLE: QS, ham sets 2 sets of 10 reps, SAQ, alt hip flex with 4# wt 3 sets of 10 reps. pt also performed isometric hip add, isometric ankle inversion 2 sets of 10 reps. pt performed SLR with 2 1/2#, blue tband for ankle DF, green band for ankle inversion 3 sets of 10. pt performed LAQ and seated hip flex with 4# 2 sets of 10. Standing ham curls. Leg press 60# 3 sets of 10 reps. pt also rode bike x 5 mins. Total minutes of Exercise: 51 Manual Therapy: NA HOME EXERCISE PROGRAM: heel slides, standing HS curls, SAQ's, Quad sets, ankle pumps, heel slides in sitting. Sitting, LAQ and alt hip flexion. SLR. - Charges Timed Code Treatment Minutes: 51 Total Treatment Time: 55 Procedures billed for this date of service:: ex 3 Assessment: pt progressing well toward goals. pt progressing with increased strength and flexibility. pt ROM also improving. pt has met STG 1, 3. Patient Education: Home Exercise Program, Education of Plan of Care Patient demonstrates compliance with HEP?: Yes Short Term Goals Goal #1: Pt independent and compliant with HEP. Goal to be met by: 11/06/18 Progress towards Goal:: Met Goal #2: Right knee AROM full extension to 110 degrees. Goal to be met by: 11/06/18 Progress towards Goal:: Progressing Goal #3: Pt to amb. with st. cane with good safety and minimal gt deviation. Goal to be met by: 11/13/18 Progress towards Goal:: Met Charter Bus Driver Goals Goal #1: Pt knows HEP and to continue ex's to maintain functional level at D/C. Goal to be met by: 12/12/18 Progress towards goal: Progressing Goal #2: Right knee AROM WFL's to perform all functional activities. Goal to be met by: 12/12/18 Progress towards goal: Progressing Goal #3: Pt will amb. w/o assistive device community distances with min. gait deviat Goal to be met by: 12/12/18 Progress towards goal: Progressing Goal #4: Score on LE functional scale improved to 54/80. Goal to be met by: 12/12/18 Plan Dates of [facility] Goals: 12/12/18 Expiration date of current Insurance Approval:: n/a PLAN: plan to continue to progress with therex for strengthening, ROM.
--- NOTE | 2018-11-11 10:50 | RS.OPPTDN ---
Subjective Date of Note: 11/11/18 Visit #: 9 Number of visits approved by Insurance: na Date of Evaluation: 10/23/18 Payer Source: MEDICARE Treatment Diagnosis: Right knee pain, Right knee stiffness, s/p right TKA Current Subjective/complaints:: Reports he has been able to get outside and do a few light chores. States he continues to use cane outside of his home for safety. *Precautions: n/a Pain Assessment - Pain Description Pain Location: right knee Pain Description: Tightness Pain Description: sore, stiff Current Pain Intensity: mild Interventions - Exercise/Activities/Manual Therapy Exercises/Activities: Stationary bike x5mins(not included in direct time). Assisted stretching of right hamstrings and knee flexion/extension. 4# right for SAQ and alt hip flexion, 3s/10reps. Isometric hip add and isometric ankle inversion, both with ball. Increased to 3# for SLR. Blue theraband for resisted ankle df 3s/10reps, and green theraband for ham curls. In sitting, 4# to right for LAQ and hip flexion. Green tband for ham curl. Passive flexion, isometric flexion and extension at different angles. Standing right ham curl with 4#. Standing forward lunge and lateral step-ups. Leg press increased to 60 # 3s/15reps. Total minutes of Exercise: 41mins/46mins Manual Therapy: NA HOME EXERCISE PROGRAM: heel slides, standing HS curls, SAQ's, Quad sets, ankle pumps, heel slides in sitting. Sitting, LAQ and alt hip flexion. SLR. - Objective Findings Observations,measurements,etc.: In sitting, active assisted right knee flexion to 117 degrees. - Charges Timed Code Treatment Minutes: 41mins Total Treatment Time: 46mins Procedures billed for this date of service:: EX3 Assessment: Patient progressing but will need to increase strength and independence with ambulation to [place]. Patient Education: Home Exercise Program, Home Safety, Activity Modification Patient demonstrates compliance with HEP?: Yes Short Term Goals Goal #1: Pt independent and compliant with HEP. Goal to be met by: 11/06/18 Progress towards Goal:: Met Goal #2: Right knee AROM full extension to 110 degrees. Goal to be met by: 11/06/18 Progress towards Goal:: Partially Met Comments:: Active assisted flexion 117, extension to neutral with stretch. Goal #3: Pt to amb. with st. cane with good safety and minimal gt deviation. Goal to be met by: 11/13/18 Progress towards Goal:: Met Arts Administrator Goals Goal #1: Pt knows HEP and to continue ex's to maintain functional level at D/C. Goal to be met by: 12/12/18 Progress towards goal: Progressing Goal #2: Right knee AROM WFL's to perform all functional activities. Goal to be met by: 12/12/18 Progress towards goal: Progressing Goal #3: Pt will amb. w/o assistive device community distances with min. gait deviat Goal to be met by: 12/12/18 Progress towards goal: Progressing Goal #4: Score on LE functional scale improved to 54/80. Goal to be met by: 12/12/18 Plan Dates of Shelter Goals: 12/12/18 Expiration date of current Insurance Approval:: 12/12/18 PLAN: Continue to progress strength and ROM, progression toward independence with ambulation and functional activities.
--- NOTE | 2018-11-13 12:15 | RS.OPPTDN ---
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 Reports improvement with most functional activities when going over Lower Extremity Functional scale. *Precautions: n/a Pain Assessment - Pain Description Pain Location: right knee Pain Description: Tightness, Dull Current Pain Intensity: no pain at rest, mild discomfort with ambulation Interventions - Exercise/Activities/Manual Therapy Exercises/Activities: Stationary bike x5mins(not included in direct time). Assisted stretching of right hamstrings and knee flexion. Quads sets. Increased to 7# for right for SAQ and 5# for right hip flexion, 3s/10reps. Isometric hip add and isometric ankle inversion, both with ball. 3# for SLR. Hip abd no weight. Blue theraband for resisted ankle df 3s/10reps, and green theraband for ham curls. In sitting, 4# to right for LAQ and hip flexion. Green tband for ham curl. Passive flexion stretching, isometric flexion and isometric extension at different angles. Standing at handrail for right ham curl and hip abd, both with 4#. Standing forward lunge. Leg press 60# 2s/ 15reps and 75# 2s/15reps. Total minutes of Exercise: EX 44mins/49mins Manual Therapy: NA HOME EXERCISE PROGRAM: heel slides, standing HS curls, SAQ's, Quad sets, ankle pumps, heel slides in sitting. Sitting, LAQ and alt hip flexion. SLR. - Objective Findings Observations,measurements,etc.: Active right knee flexion 110 degrees, passive to 118 degrees, and active right knee extension to neutral. - Charges Timed Code Treatment Minutes: 44mins Total Treatment Time: 49mins Procedures billed for this date of service:: EX3 Assessment: Patient progressing well with strength and ROM of the right LE. He is consistently increasing his activity level at home and working on HEP. It is important for patient to progress to safe, independent ambulation as he has daily farm work. Patient has good potential to make progress towards all LTG's and return to PLOF. Patient Education: Home Exercise Program, Home Safety Patient demonstrates compliance with HEP?: Yes Short Term Goals Goal #1: Pt independent and compliant with HEP. Goal to be met by: 11/06/18 Progress towards Goal:: Met Goal #2: Right knee AROM full extension to 110 degrees. Goal to be met by: 11/06/18 Progress towards Goal:: Met Goal #3: Pt to amb. with st. cane with good safety and minimal gt deviation. Goal to be met by: 11/13/18 Progress towards Goal:: Met Rf Technician Goals Goal #1: Pt knows HEP and to continue ex's to maintain functional level at D/C. Goal to be met by: 12/12/18 Progress towards goal: Progressing Goal #2: Right knee AROM WFL's to perform all functional activities. Goal to be met by: 12/12/18 Progress towards goal: Progressing Goal #3: Pt will amb. w/o assistive device community distances with min. gait deviat Goal to be met by: 12/12/18 Progress towards goal: Progressing Goal #4: Score on LE functional scale improved to 54/80. Goal to be met by: 12/12/18 Progress towards goal: Met (47/80 on Lower Extremity Functional Scale today.) Plan Dates of Rf Technician Goals: 12/12/18 Expiration date of current Insurance Approval:: 12/12/18 PLAN: Continue with strengthening and possibly request order to continue treatment as patient demos potential to return to PLOF.
--- NOTE | 2018-11-17 11:45 | RS.PTSUM ---
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 He is walking short community distances with a crutch. Describes still having difficulty getting into/out of car. He is not driving. Objective Measurements/Presentation: Active right knee flexion to 110 degrees, PROM 118 degrees. He exhibits knee extension to neutral. He ambulates with a cane w/ min-mod. gait deviations (decreased stride and stance phase on the right LE). LE functional scale 41.25% impairment. Improved from 77.5% at initial evaluation. G Codes: NA Source of G Code Score: NA - Short Term Goals Goal #1: Pt independent and compliant with HEP. Goal to be met by: 11/06/18 Progress towards Goal:: Met Goal #2: Right knee AROM full extension to 115. Goal to be met by: 12/01/18 (Revised goal) Progress towards Goal:: Met Goal #3: Pt to amb. with st. cane with good safety and minimal gt deviation. Goal to be met by: 11/13/18 Progress towards Goal:: Met Goal #4: Pt to demo. symmetrical stride length with use of st. cane w/ gait. Goal to be met by: 12/01/18 (New goal) - Mcfp Goals Goal #1: Pt knows HEP and to continue ex's to maintain functional level at D/C. Goal to be met by: 12/12/18 Progress towards goal: Progressing Goal #2: Right knee AROM WFL's to perform all functional activities. Goal to be met by: 12/12/18 Progress towards goal: Progressing Goal #3: Pt will amb. w/o assistive device community distances with min. gait deviat Goal to be met by: 12/12/18 Progress towards goal: Progressing Goal #4: Score on LE functional scale improved to 54/80. Goal to be met by: 12/12/18 Progress towards goal: Met (47/80 on Lower Extremity Functional Scale today.) - Assessment Assessment of Improvement/Progress: Mr. Wedeking has made good progress with therapy. 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 He is still having difficulty getting in/out of vehicle and he is having to ambulate in the community and on the farm with a crutch for safety. He demonstrates good potenial to benefit from continued therapy to increase his independence and his abilities with his chores on the farm. - Plan Plan: Will request continuation of therapy sessions. Frequency: 1-3 X week Duration: 2 weeks Dates of Mcfp Goals: 12/12/18 Expiration date of current Insurance Approval:: NA
== END 2018-11-14 23:59 ==
PROVIDERS: ATTEND Orthopaedic Surgery
DX: M17.11 Unilateral primary osteoarthritis, right knee (principal); M25.561 Pain in right knee; M25.661 Stiffness of right knee, not elsewhere classified; R26.9 Unspecified abnormalities of gait and mobility; Z47.1 Aftercare following joint replacement surgery; Z96.651 Presence of right artificial knee joint